=== PATIENT | male | born 1990 | race Caucasian/White ===

== ENCOUNTER 2019-12-16 13:36 | Emergency (ER) | payer OTHER ==
--- NOTE | 2019-12-16 15:41 | CR ---
PROCEDURE INFORMATION: Exam: XR Right Tibia and Fibula Exam date and time: 12/16/2019 3:30 PM Age: 29 years old Clinical indication: Other: Bumped low cruz area/pain; Additional info: Injury TECHNIQUE: Imaging protocol: XR Right tibia and fibula. Views: 2 views. COMPARISON: No relevant prior studies available. FINDINGS: Bones/joints: There is no evidence of acute fracture. There is no evidence of joint malalignment or dislocation. Soft tissues: There are no soft tissue masses or fluid collections. IMPRESSION: 1. No evidence of acute fracture. 2. No evidence of acute dislocation.
--- NOTE | 2019-12-16 15:47 | EDM.PDOC ---
Scribed by Jenny Arteaga 12/16/19 1547 for Suha Alonzo MD ED HPI GENERAL MEDICAL PROBLEM - General Chief Complaint: Lower Extremity Injury/Pain Stated Complaint: ANKLE AND CRUZ Time Seen by Provider: 12/16/19 15:22 Source of Information: Reports: Patient, RN, RN Notes Reviewed History Limitations: Reports: No Limitations - History of Present Illness INITIAL COMMENTS - FREE TEXT/NARRATIVE: Patient presents to ER stating he sprained his right ankle. He was doing obstacle course falling down a log, slipped on the wet and heel down then twisted and caught himseld. Pain is up to the cruz medial to the knee. It is now better with swelling note. HE wants to make sure it is not broken. He can walk on it now. No numbness or tingling to the feet. He did take an Ibuprofen used an ice pack. Onset: Today Location: Reports: Lower Extremity, Right Quality: Reports: Ache Severity: Moderate Improves with: Reports: None Worsens with: Reports: None Associated Symptoms: Reports: No Other Symptoms Right Ankle Pain Score (Numeric/FACES): 4 - Related Data Allergies Allergy/AdvReac Type Severity Reaction Status Date / Time No Known Allergies Allergy Verified 12/16/19 14:51 Home Meds: Home Meds Sertraline HCl [Zoloft] 20 mg PO DAILY 12/16/19 [History] Past Medical History HEENT History: Reports: None Cardiovascular History: Reports: None Respiratory History: Reports: None Gastrointestinal History: Reports: None Genitourinary History: Reports: None Musculoskeletal History: Reports: None Neurological History: Reports: Concussion, Head Trauma Psychiatric History: Reports: Depression, PTSD Endocrine/Metabolic History: Reports: None Hematologic History: Reports: None Immunologic History: Reports: None Oncologic (Cancer) History: Reports: None Dermatologic History: Reports: None - Past Surgical History Head Surgeries/Procedures: Reports: None Social & Family History - Tobacco Use Smoking Status *Q: Never Smoker Second Hand Smoke Exposure: No - Caffeine Use Caffeine Use: Reports: Coffee, Energy Drinks, Soda, Tea - Recreational Drug Use Recreational Drug Use: No Review of Systems - Review of Systems Review Of Systems: Comprehensive ROS is negative, except as noted in HPI. ED EXAM, GENERAL - Physical Exam Exam: See Below Exam Limited By: No Limitations General Appearance: Alert, WD/WN, No Apparent Distress Head: Atraumatic, Normocephalic Neck: Normal Inspection Respiratory/Chest: No Respiratory Distress Cardiovascular: Regular Rate, Rhythm Extremities: Other (right ankle normal. Right mid cruz adalid-medial pain with mild swelling. No gross deformity. ) Neurological: Alert, Oriented Psychiatric: Normal Affect Skin Exam: Warm, Dry, Intact Course - Vital Signs Text/Narrative:: xray tib/fib - no acute findings or fractures Last Recorded V/S: Last Vital Signs Temp 98.2 F 12/16/19 14:43 Pulse 82 12/16/19 14:43 Resp 16 12/16/19 14:43 BP 149/90 H 12/16/19 14:43 Pulse Ox 99 12/16/19 14:43 Departure - Departure Time of Disposition: 15:44 Disposition: Home, Self-Care 01 Condition: Good Clinical Impression: Leg sprain - Discharge Information *PRESCRIPTION DRUG MONITORING PROGRAM REVIEWED*: Not Applicable *COPY OF PRESCRIPTION DRUG MONITORING REPORT IN PATIENT CHARLY: Not Applicable Instructions: Muscle Strain, [id number] Forms: ED Department Discharge Additional Instructions: Tylenol and Ibuprofen as needed for pain Sepsis Event Note (ED) - Evaluation Sepsis Screening Result: No Definite Risk - Focused Exam Vital Signs: Vital Signs Temp Pulse Resp BP Pulse Ox 12/16/19 14:43 98.2 F 82 16 149/90 H 99 - Assessment/Plan Assessment:: 29 yo male with R lower extremity sprain while running an obstacle course who is starting to feel better Plan: OTC meds PRN for pain relief No official restrictions for PT, but rest and ice for a few days FU with PCP in 3-5 days I have read and agree with the documentation that has been completed regarding this visit. By signing this record, I attest that the documentation was completed in my physical presence and is an accurate record of the encounter.
== END 2019-12-16 15:52 | disposition home or self-care (01) ==
LOC: DL.ED 13:36
DX: S93.401A Sprain of unspecified ligament of right ankle, initial encounter (principal); F32.9 Major depressive disorder, single episode, unspecified; Z79.899 Other long term (current) drug therapy; X50.9XXA Other and unspecified overexertion or strenuous movements or postures, initial encounter
CPT/HCPCS: 73590-RT; 99283